=== PATIENT | female | born 1995 | race Caucasian/White ===

== ENCOUNTER 2019-10-03 01:02 | Emergency (ER) | payer OTHER ==
[~2019-10-03] VITALS: Ht 162.6 cm; Wt 63.0 kg
[2019-10-03 01:40] VITALS: BP 112/72
== END 2019-10-03 01:40 | disposition home or self-care (01) ==
LOC: MED 01:02
DX: N39.0 Urinary tract infection, site not specified (principal); J45.909 Unspecified asthma, uncomplicated
CPT/HCPCS: 81002; 81025; 99282